=== PATIENT | male | born 1990 | race Caucasian/White ===

== ENCOUNTER 2017-05-17 02:13 | Emergency (ER) | payer SELFPAY ==
--- NOTE | 2017-05-17 02:44 | PDOC ---
History of Present Illness - General Chief Complaint: Altered Mental Status Stated Complaint: ALTERED CONSCIOUSNESS Time Seen by Provider: 05/17/17 02:32 History Source: Patient, Parent(s) (Father) Exam Limitations: Clinical Condition - History of Present Illness Initial Comments: 05/17/17 02:38 26yo Male patient presented to ED via EMS. Patient found sleeping in a parking lot and brought to ED for evaluation of altered mental status. Patient states he is currently taking Suboxone and Klonopin. Patient requesting to go home because he has not slept in 3 days, per patient. Father at bedside to take patient home. Past History - Travel Traveled outside of the country in the last 30 days: No Close contact w/someone who was outside of country & ill: No - Past Medical History Allergies/Adverse Reactions: Allergies Allergy/AdvReac Type Severity Reaction Status Date / Time cefaclor [From Ceclor] Allergy Severe Rash Verified 01/15/15 09:21 Home Medications: Ambulatory Orders Buprenorphine HCl [Subutex -] 8 mg SL DAILY 01/14/15 Clonazepam 1 mg PO TID 01/14/15 Mirtazapine [Remeron -] 15 mg PO DAILY 01/14/15 Venlafaxine HCl [Effexor -] 75 mg PO DAILY 01/14/15 Ketorolac Tromethamine [Toradol] 10 mg PO Q6H PRN #0 01/15/15 Anemia: No Asthma: No Cancer: No Cardiac Disorders: No CVA: No COPD: No CHF: No Dementia: No Diabetes: No GI Disorders: No Disorders: No HTN: No Hypercholesterolemia: No Kidney Stones: No Liver Disease: No Seizures: No Thyroid Disease: No - Surgical History Abdominal Surgery: No Appendectomy: No Cardiac Surgery: No Cholecystectomy: No Lung Surgery: Yes (FOR PUNCTURED LUNG IN 07/19/2011) Neurologic Surgery: No Orthopedic Surgery: Yes (LT - 2011, LEFT KNEE FOR TORN LIGAMENT AND LEFT ELBOW.) - Reproductive History Testicular Surgery: No - Suicide/Smoking/Psychosocial Hx Smoking History: Current every day smoker Have you smoked in the past 12 months: Yes Number of Cigarettes Smoked Daily: 10 'Breaking Loose' booklet given: 01/15/15 Hx Alcohol Use: No Drug/Substance Use Hx: No (DENIES) Substance Use Type: None Hx Substance Use Treatment: Yes Review of Systems - Review of Systems Able to Perform ROS?: Yes Is the patient limited Kazakh proficient: No Constitutional: No: Chills, Fever Neurological: No: Headache, Numbness, Seizure, Tremors, Weakness, Ataxia, Dizziness All Other Systems: Reviewed and Negative *Physical Exam - Physical Exam General Appearance: Yes: Nourished, Appropriately Dressed, Other (Appears under the influence of a drug.). No: Apparent Distress, Mild Distress, Moderate Distress, Severe Distress HEENT: positive: EOMI (Pin[place] Pupils), APRIL, Normal ENT Inspection, Normal Voice, Symmetrical, TMs Normal, Pharynx Normal Neck: positive: Trachea midline, Supple. negative: Lymphadenopathy (R), Lymphadenopathy (L) Respiratory/Chest: positive: Lungs Clear, Normal Breath Sounds. negative: Chest Tender, Accessory Muscle Use, Labored Respiration, Rapid RR, Rhonchi, Stridor, Wheezing Cardiovascular: positive: Regular Rhythm, Regular Rate Musculoskeletal: positive: Normal Inspection. negative: CVA Tenderness Extremity: positive: Normal Capillary Refill, Normal Inspection, Normal Range of Motion. negative: Pedal Edema, Swelling, Calf Tenderness, Erythema, Inflammation Integumentary: positive: Normal Color, Dry, Warm Neurologic: positive: speech correction consultant II-XII NML intact, Fully Oriented, Alert, Normal Response, Motor Strength 5/5. negative: Normal Mood/Affect Medical Decision Making - Medical Decision Making 05/17/17 02:44 Patient refusing all care and would like to be d/c'd to home. *DC/Admit/Observation/Transfer Diagnosis at time of Disposition: Sedative dependence Opioid dependence Qualifiers: Substance use status: uncomplicated Qualified Code(s): F11.20 - Opioid dependence, uncomplicated - Discharge Dispostion Disposition: HOME Condition at time of disposition: Stable Admit: No - Patient Instructions Printed Discharge Instructions: DI for Drug Abuse and Drug Addiction Additional Instructions: Follow up with your primary care provider as needed. Drink plenty fluids. Return if any concerns for further evaluation. Print Language: MONGOLIAN
[2017-05-17 02:51] VITALS: BP 163/90; PULSE 97; TEMP 97.6; BMI 28.4
--- NOTE | 2017-05-17 02:54 | PDOC ---
*Physical Exam - Vital Signs Last Vital Signs Temp Pulse Resp BP Pulse Ox 97.6 F 97 H 14 163/90 95 05/17/17 02:32 05/17/17 02:32 05/17/17 02:32 05/17/17 02:32 05/17/17 02:32 Medical Decision Making - Medical Decision Making 05/17/17 02:53 agree with care from DOOR MANAGER Aquilino *DC/Admit/Observation/Transfer Diagnosis at time of Disposition: Sedative dependence Opioid dependence Qualifiers: Substance use status: uncomplicated Qualified Code(s): F11.20 - Opioid dependence, uncomplicated - Discharge Dispostion Disposition: HOME Condition at time of disposition: Stable - Referrals - Patient Instructions Printed Discharge Instructions: DI for Drug Abuse and Drug Addiction Additional Instructions: Follow up with your primary care provider as needed. Drink plenty fluids. Return if any concerns for further evaluation. Print Language: GUINEAN - Post Discharge Activity
== END 2017-05-17 03:09 | disposition home or self-care (01) ==
LOC: JER 02:13
DX: F11.20 Opioid dependence, uncomplicated (principal)
CPT/HCPCS: 99281-25